=== PATIENT | female | born 1940 | race Two or more races ===

== ENCOUNTER 2017-01-12 17:10 | Inpatient (IN) | payer MEDICARE, OTHER ==
[~2017-01-12] VITALS: Ht 157.5 cm; Wt 110.2 kg
[2017-01-12] MEDS ORDERED: Z GUARD REMEDY PASTE 57 GM TUBE TOP PRN (17:30)
[2017-01-12] MEDS ORDERED: MAGN30OR PO (17:56)
[2017-01-12] MEDS ORDERED: PANT40TA4 PO (17:56)
[2017-01-12] MEDS ORDERED: INSU100V28 SQ ×2 (17:56)
[2017-01-12] MEDS ORDERED: ACET-2154 PO (17:56)
[2017-01-12] MEDS ORDERED: HYDR100T27 PO (17:56)
[2017-01-12] MEDS ORDERED: GLIP10TA11 PO (17:56)
[2017-01-12] MEDS ORDERED: FURO40TA5 PO (17:56)
[2017-01-12] MEDS ORDERED: CLOP75TA33 PO (17:56)
[2017-01-12] MEDS ORDERED: LATA2.5D2 EACHEYE (17:56)
[2017-01-12] MEDS ORDERED: CARV25TA2 PO (17:56)
[2017-01-12] MEDS ORDERED: CLON0.1T PO ×2 (17:56)
[2017-01-12] MEDS ORDERED: SIMV40TA5 PO (17:56)
[2017-01-12] MEDS ORDERED: CLON0.5T4 PO (17:56)
[2017-01-12] MEDS ORDERED: IPRA0.2S48 NEB (17:56)
[2017-01-12] MEDS ORDERED: ERGO500014 PO (17:56)
[2017-01-12] MEDS ORDERED: HYDR-3980 PO (17:56)
[2017-01-12] MEDS ORDERED: GABA-532 PO (17:56)
[2017-01-12] MEDS ORDERED: GUAI600T53 PO (17:56)
[2017-01-12] MEDS ORDERED: BLOO-668 IN (17:56)
[2017-01-12] MEDS ORDERED: ISOS30TA6 PO (17:56)
[2017-01-12] MEDS ORDERED: BISA-79 PO (17:56)
[2017-01-12] MEDS ORDERED: NALO25TA PO (17:56)
[2017-01-12] MEDS ORDERED: Medication Not On Formulary EA (Magnesium Hydroxide/Al Hydrox (Mag-Al Liquid) 30 ML) PO PRN (19:00)
[2017-01-12] MEDS ORDERED: GUAIFENESIN LA 600 MG TABLET.SA PO PRN (19:00)
[2017-01-12] MEDS ORDERED: CLONAZEPAM 0.5 MG TABLET PO PRN (19:00)
--- NOTE | 2017-01-12 19:30 | NUR ---
Received patient sitting up in bed in stable condition. at bedside. Patient is alert and oriented. Verbally responsive and able to make needs known. Denies any pain and discomfort at this time. No acute distress. On cont. O2 @ 2L via NC. Patient with IV on left arm. Patent and intact. No s/s of bleeding. No infiltration noted. Both lower extremities noted with pitting edema. Patient with bedside commode in room. Reminded patient to call for help when assitance is needed. All needs attended to promptly. Call light within reach. Will continue to monitor.
[2017-01-12] MEDS ORDERED: DEXTROSE 50% 50 ML DISP.SYRIN IV PRN (19:45)
[2017-01-12] MEDS ORDERED: MAGN400O6 PO (19:48)
[2017-01-12] MEDS ORDERED: MAGNESIUM HYDROXIDE 30 ML LIQUID UDC PO PRN ×2 (20:00)
[2017-01-12 20:48] VITALS: BP 172/78
--- NOTE | 2017-01-12 20:48 | NUR ---
Patient noted with increase BP of 172/78, BP medication give as ordered. Will re-check BP.
[2017-01-12] MEDS ORDERED: BLOOD SUGAR DIAGNOSTIC 1 EACH STRIP VI SCH (21:00)
[2017-01-12] MEDS: GABAPENTIN 100 MG CAPSULE PO SCH (21:24)
[2017-01-12] MEDS: CARVEDILOL 25 MG TABLET PO SCH (21:26)
[2017-01-12] MEDS: LATANOPROST OPHT DROP 2.5 ML BOTTLE EACHEYE SCH (21:26)
[2017-01-12] MEDS: BLOOD SUGAR DIAGNOSTIC 1 EACH STRIP VI SCH (21:29)
[2017-01-12] MEDS: INSULIN REGULAR, HUMAN 300 UNIT/3 ML VIAL SQ PRN (21:32)
[2017-01-12] MEDS: ACETAMINOPHEN 325 MG TABLET PO PRN (21:34)
[2017-01-12] MEDS: hydrALAZINE HCL 50 MG TABLET PO SCH (21:39)
--- NOTE | 2017-01-12 21:48 | NUR ---
Re-checked BP. 144/77. Patient resting comfortably. No acute distress. All needs attended to promptly. Call light within reach. Will continue to monitor.
[2017-01-12] MEDS: IPRATROPIUM BROMIDE 0.5 MG/2.5 ML NEBU NEB SCH ×2 (22:29→22:30)
[2017-01-13] MEDS: HYDROCODONE/APAP 7.5-325MG TABLET PO PRN (00:39)
[2017-01-13] MEDS: IPRATROPIUM BROMIDE 0.5 MG/2.5 ML NEBU NEB SCH ×6 (03:12→23:21)
[2017-01-13] MEDS: BLOOD SUGAR DIAGNOSTIC 1 EACH STRIP VI SCH ×4 (06:38→20:49)
[2017-01-13] MEDS: CLONIDINE HCL 0.1 MG TABLET PO PRN (06:42)
[2017-01-13] MEDS: glipiZIDE 10 MG TABLET PO SCH ×2 (06:44→16:57)
--- NOTE | 2017-01-13 06:55 | NUR ---
Patient is awake. Slept intermittently throughout the night. Verbalized that she was nervous, offered her anti anxiety medication, but patient refused. C/o pain on the neck last night, [place] given as ordered. Tolerated well. BS this AM was 370. Will endorse to day shift nurse. Glipizide 10mg given as ordered. BP noted to be 185/87, pulse 70. Clonidine given as ordered. Will endorse to day shift nurse to re-check BP in 1 hour. Patient is in no acute distress at this time. On O2 @ 2L via NC. All needs attended to promptly. Call light within reach. Will continue to monitor.
--- NOTE | 2017-01-13 08:00 | NUR ---
Pt.in bed,A/A/Ox4 no s/s of acute distress,denies pain @ time,eating breakfast,watching TV.
[2017-01-13 08:02] LABS: BASOPHILS % (AUTO) 0.4 % (0.0-2.0); EOSINOPHILS # (AUTO) 0.1 K/uL (0.0-0.7); EOSINOPHILS % (AUTO) 1.8 % (0.0-7.0); HEMATOCRIT 30.2 % (37-47); HEMOGLOBIN 9.9 G/DL (12.0-16.0); LYMPHOCYTES # (AUTO) 1.2 K/UL (0.8-4.8); LYMPHOCYTES % (AUTO) 20.7 % (20.5-51.5); MEAN CORPUSCULAR HEMOGLOBIN 26.3 UUG (27.0-31.0); MEAN CORPUSCULAR HGB CONC 33 g/dL (32.0-37.0); MEAN CORPUSCULAR VOLUME 80.3 FL (81.0-99.0); MONOCYTES # (AUTO) 0.5 K/UL (0.1-1.30); MONOCYTES % (AUTO) 8.1 % (0.0-11.0); NEUTROPHILS # (AUTO) 4.1 K/UL (1.8-8.9); PLATELET COUNT (AUTO) 148 K/UL (150-450); RED BLOOD CELL COUNT(AUTO) 3.76 MIL/UL (4.2-5.4); WHITE BLOOD COUNT (AUTO) 5.9 K/UL (4.0-11.2)
[2017-01-13 08:08] VITALS: BP 185/91
[2017-01-13 08:31] LABS: CARBON DIOXIDE 35 mmol/L (21-32); CHLORIDE 100 mmol/L (98-107); CREATININE 1.2 mg/dL (0.6-1.3); MAGNESIUM 1.8 mg/dL (1.8-2.4); PHOSPHOROUS 3.4 mg/dL (2.5-4.9); POTASSIUM 3.9 mmol/L (3.5-5.1); UREA NITROGEN, BLOOD 34 mg/dL (7-18)
[2017-01-13] MEDS: FUROSEMIDE 40 MG TABLET PO SCH (08:37)
[2017-01-13] MEDS: INSULIN REGULAR, HUMAN 300 UNIT/3 ML VIAL SQ PRN ×4 (08:37→20:54)
[2017-01-13 08:38] LABS: GLUCOSE 387 mg/dL (74-106)
[2017-01-13] MEDS: hydrALAZINE HCL 50 MG TABLET PO SCH ×2 (08:38→20:49)
[2017-01-13] MEDS: PANTOPRAZOLE SODIUM 40 MG TABLET.DR PO SCH (08:38)
[2017-01-13] MEDS: CLOPIDOGREL 75 MG TABLET PO SCH (08:38)
[2017-01-13] MEDS: CARVEDILOL 25 MG TABLET PO SCH ×2 (08:39→20:48)
[2017-01-13] MEDS: MOVANTIK 25 MG PO SCH ×2 (08:40→13:53)
[2017-01-13] MEDS: ISOSORBIDE MONONITRATE 30 MG TAB.SR.24H PO SCH ×2 (08:42→16:57)
[2017-01-13] MEDS ORDERED: Medication Not On Formulary EA (Naloxegol Oxalate (Movantik) 25 MG) PO SCH (09:00)
[2017-01-13 09:04] LABS: CHOLESTEROL 141 mg/dL (<200); HDL CHOLESTEROL 47 mg/dL (40-60); TRIGLYCERIDES 189 MG/DL (30-150)
[2017-01-13 12:00] VITALS: BP 129/61
[2017-01-13] MEDS ORDERED: INSULIN DETEMIR 300 UNIT/3 ML CARTRIDGE SQ SCH ×2 (13:15→21:00)
[2017-01-13] MEDS ORDERED: INSULIN DETEMIR 300 UNIT/3 ML CARTRIDGE SQ ONE (13:30)
[2017-01-13] MEDS: BISACODYL 5 MG TABLET.DR PO PRN (13:41)
--- NOTE | 2017-01-13 15:31 | NUR ---
PT. AT BEDSIDE,WAS UPDATED WITH PT.CONDITION AND PLAN OF CARE.
--- NOTE | 2017-01-13 17:22 | NUR ---
PT.WAS SEEN DR.NIAMER SHUKLA.
[2017-01-13 17:40] VITALS: BP 159/78
[2017-01-13 20:00] VITALS: BP 162/79
[2017-01-13] MEDS: LATANOPROST OPHT DROP 2.5 ML BOTTLE EACHEYE SCH (20:47)
[2017-01-13] MEDS: GABAPENTIN 100 MG CAPSULE PO SCH (20:47)
[2017-01-13] MEDS: SIMVASTATIN 40 MG TABLET PO SCH (20:49)
--- NOTE | 2017-01-13 23:04 | NUR ---
PATIENT SITTING ON BED, SHE USES OXYGEN VIA NC @ 2LPM ON AND OFF. NO C/O OF PAIN OR ANY DICOMFORT AT THIS TIME. AT [facility] BED SIDE. WILL CONTINUE TO MONITOR.
[2017-01-13] MEDS: ACETAMINOPHEN 325 MG TABLET PO PRN (23:54)
[2017-01-14] MEDS: IPRATROPIUM BROMIDE 0.5 MG/2.5 ML NEBU NEB SCH ×6 (02:31→22:37)
[2017-01-14 06:00] VITALS: BP 156/81
[2017-01-14] MEDS: HYDROCODONE/APAP 7.5-325MG TABLET PO PRN ×2 (06:01→15:12)
--- NOTE | 2017-01-14 06:39 | NUR ---
PATIENT WAKE MOST NIGHT, PRN PAIN MEDICATION ADMINISTERED ON C/O NECK PAIN. USING O2 @ 2L VIA NC. BREATHING TX CONTINUING ORDERED. ENCOURAGED TO KEEP FEET ELEVATED. SAFETY MEASURES OBSERVED. CALL LIGHT IN REACH
[2017-01-14] MEDS: BLOOD SUGAR DIAGNOSTIC 1 EACH STRIP VI SCH ×4 (07:31→21:37)
[2017-01-14 08:10] VITALS: BP 172/82
[2017-01-14] MEDS: ISOSORBIDE MONONITRATE 30 MG TAB.SR.24H PO SCH ×2 (09:00→16:35)
[2017-01-14] MEDS: glipiZIDE 10 MG TABLET PO SCH ×2 (09:00→16:35)
[2017-01-14] MEDS: FUROSEMIDE 40 MG TABLET PO SCH (09:01)
[2017-01-14] MEDS: CARVEDILOL 25 MG TABLET PO SCH ×2 (09:01→21:26)
[2017-01-14] MEDS: hydrALAZINE HCL 50 MG TABLET PO SCH ×2 (09:01→16:36)
[2017-01-14] MEDS: CLOPIDOGREL 75 MG TABLET PO SCH (09:02)
[2017-01-14] MEDS: PANTOPRAZOLE SODIUM 40 MG TABLET.DR PO SCH (09:02)
[2017-01-14] MEDS: ACETAMINOPHEN 325 MG TABLET PO PRN (13:13)
[2017-01-14] MEDS: INSULIN REGULAR, HUMAN 300 UNIT/3 ML VIAL SQ PRN ×3 (13:37→21:40)
[2017-01-14] MEDS: CLONIDINE HCL 0.1 MG TABLET PO PRN (14:39)
[2017-01-14] MEDS: AMLODIPINE 5 MG TABLET PO SCH (14:40)
--- NOTE | 2017-01-14 14:50 | NUR ---
PT GIVEN 10 UNITS FOR 398 BEFORE LUNCH. REASSESSED AFTER 1 HOUR. PT BLOOD GLUCOSE. 429. CALLED MD. MD ORDERED 10UNITS STAT. WILL CONTINUE TO REASSESS FOR COMPLICATIONS.
[2017-01-14] MEDS ORDERED: INSULIN REGULAR, HUMAN 300 UNIT/3 ML VIAL SQ SCH (15:00)
--- NOTE | 2017-01-14 15:12 | NUR ---
PT COMPLAINS OF LEG PAIN. PT ASSESSED. PEDAL PULSES ARE PALPABLE. PT GIVEN NORCO 7-325.PT GIVEN BREATHING THREATMENT. PT PUT ON HUMIDIFIER COMPLAINTS OF DRY NOSE. WILL CONTINUE TO REASESS FOR COMPLICATIONS.
--- NOTE | 2017-01-14 18:58 | NUR ---
pt had uncontrollable blood sugar levels during shift. called md for recommendations. md ordered 10 units humilin after blood sugar recheck 429. pt also had bp on the 170. pt given clonidine. pt averages on 150 for bp and 300s on blood sugar. pt seen by associate field service engineer and recommended new bp meds. pt also seen by dr leslie and also adjusted levemir. pt stopped complaining of neuropathic leg pain after blood sugar drops. will continue to endorse new orders to night patrol inspector nurse.
--- NOTE | 2017-01-14 19:30 | NUR ---
RECEIVED PATIENT AWAKE, ALERT, AND ORIENTED X4. COMFORTABLE AT PRESENT.NO C/O SOB ON O2 AT 2 LPM/NASAL CANNULA. HUMIDIFIER APPLIED FOR PATIENT C/O HAVING DRY NOSE.SATS ADEQUATE OVER 92%.LUNGS CLEAR. NON PRODUCTIVE COUGH.OOB TO COMMODE WITH STANDBY ASSIST AND VOIDED CLEAR YELLOW URINE IN ADEQUATE AMOUNTS. PM CARE COMPLETED. CALL LIGHT WITHIN REACH.
[2017-01-14] MEDS ORDERED: INSULIN DETEMIR 300 UNIT/3 ML CARTRIDGE SQ SCH (21:00)
[2017-01-14] MEDS: LATANOPROST OPHT DROP 2.5 ML BOTTLE EACHEYE SCH (21:25)
[2017-01-14] MEDS: GABAPENTIN 100 MG CAPSULE PO SCH (21:26)
[2017-01-14] MEDS: SIMVASTATIN 40 MG TABLET PO SCH (21:26)
[2017-01-14] MEDS: INSULIN DETEMIR 300 UNIT/3 ML CARTRIDGE SQ SCH (21:41)
[2017-01-14 23:14] VITALS: BP 152/76
[2017-01-15] MEDS: IPRATROPIUM BROMIDE 0.5 MG/2.5 ML NEBU NEB SCH ×6 (03:14→22:55)
[2017-01-15] MEDS: ACETAMINOPHEN 325 MG TABLET PO PRN ×2 (03:14→16:36)
[2017-01-15] MEDS: CLONIDINE HCL 0.1 MG TABLET PO PRN (04:29)
--- NOTE | 2017-01-15 06:00 | NUR ---
SLEPT ONLY FAIR LAST NIGHT.REFUSES NORCO FOR PAIN D/T CONCERNS OVER CONSTIPATION. SO DID C/O LEFT NECK PAIN AND WITH GENERALIZED DISCOMFORT. ICE PACK WITH LITTLE RELIEF.BLOOD SUGAR IMPROVED THIS MORNING WITH INCREASE IN LEVIMIR TO 25 UNITS.CONTINUE TO MONITOR.CALL LIGHT WITHIN REACH AAT
[2017-01-15 06:30] VITALS: BP 145/67
[2017-01-15] MEDS: BLOOD SUGAR DIAGNOSTIC 1 EACH STRIP VI SCH ×5 (06:52→22:24)
[2017-01-15] MEDS: glipiZIDE 10 MG TABLET PO SCH ×2 (07:49→16:40)
[2017-01-15] MEDS: INSULIN REGULAR, HUMAN 300 UNIT/3 ML VIAL SQ PRN ×5 (07:53→22:27)
--- NOTE | 2017-01-15 08:00 | NUR ---
RECEIVED PATIENT AWAKE, ALERT AND ORIENTED X4. ON O2 AT 2 LMP WITH O2 SAT AT 95%. NO COMPLAINTS OF SHORTNESS OF BREATH NOT IN ANY FORM OF DISTRESS. NO COMPLAINTS OF PAIN AT THE MOMENT. BP 145/83, REFUSED HYDRALAZINE 100 MG AND SAID "MY BP NOT HIGH, IM ALREADY TAKING SOMETHING FOR BLOOD PRESSURE."
[2017-01-15] MEDS: PANTOPRAZOLE SODIUM 40 MG TABLET.DR PO SCH (08:15)
[2017-01-15] MEDS: FUROSEMIDE 40 MG TABLET PO SCH (08:19)
[2017-01-15] MEDS: AMLODIPINE 5 MG TABLET PO SCH (08:19)
[2017-01-15] MEDS: CLOPIDOGREL 75 MG TABLET PO SCH (08:19)
[2017-01-15] MEDS: hydrALAZINE HCL 50 MG TABLET PO SCH ×5 (08:21→16:40)
[2017-01-15] MEDS: CARVEDILOL 25 MG TABLET PO SCH ×2 (08:22→21:08)
[2017-01-15] MEDS: ISOSORBIDE MONONITRATE 30 MG TAB.SR.24H PO SCH ×2 (08:22→16:40)
[2017-01-15] MEDS: MOVANTIK 25 MG PO SCH (08:23)
--- NOTE | 2017-01-15 10:30 | NUR ---
PATIENT COMPLAINED OF GENERALIZED PAIN RATED 9/10. JUST FINISHED WITH OT. PRN NORCO GIVEN.
[2017-01-15 10:32] VITALS: BP 145/83
[2017-01-15] MEDS: HYDROCODONE/APAP 7.5-325MG TABLET PO PRN ×2 (10:41→19:10)
--- NOTE | 2017-01-15 13:42 | NUR ---
PATIENT RESTING IN BED COMFORTABLY NO COMPLAINTS OF PAIN AT THE MOMENT. BP AT 133/56 [place] AT 71%. HYDRALAZINE 100 MG TID REFUSED BY PATIENT, CLAIMS THAT SHE IS SCARED THAT BP MIGHT GO DOWN AND BECOME TOO LOW. EXPLAINED MEDICATION INDICATIONS AND NEED, BUT STILL REFUSES
--- NOTE | 2017-01-15 16:45 | NUR ---
PATIENT REMOVED O2 BECAUSE OF PAIN OVER POSTERIOR EAR. O2 SAT AT 95% IN ROOM AIR. PETROLEUM APPLIED OVER POSTERIOR EAR. PATIENT WANTED PAIN MEDICATIONS, PAIN OVER POSTERIOR EAR RATED 5/10, TYLENOL PRN GIVEN.
--- NOTE | 2017-01-15 19:00 | NUR ---
COMPLAINED OF LOWER BACK PAIN RATED 8/10. NORCO PRN GIVEN
--- NOTE | 2017-01-15 19:30 | NUR ---
RECEIVED PATIENT AWAKE, ALERT AND ORIENTED X4 WITH LESS C/O GENERALIZED PAIN AFTER 190 NORCO WAS GIVEN.ABLE TO AMBULATE WITH WALKER A LITTLE EASIER NOW. SITTING AT BEDSIDE DANGLING IN NAD. OFF OXYGEN AT PRESENT WITH ADEQUATE SATS. NO C/O RESPIRATORY DISTRESS NOTED.INSTRUCTED TO CALL RN FOR ALL NEEDS/ REQUESTS. VERBALIZES GOOD UNDERSTANDING. CALL LIGHT WITHIN REACH AAT
[2017-01-15 20:00] VITALS: BP 146/70
[2017-01-15] MEDS: LATANOPROST OPHT DROP 2.5 ML BOTTLE EACHEYE SCH (21:07)
[2017-01-15] MEDS: GABAPENTIN 100 MG CAPSULE PO SCH (21:07)
[2017-01-15] MEDS: SIMVASTATIN 40 MG TABLET PO SCH (21:07)
[2017-01-15] MEDS: INSULIN DETEMIR 300 UNIT/3 ML CARTRIDGE SQ SCH (21:19)
--- NOTE | 2017-01-15 21:35 | NUR ---
DR PERALTA NOTIFIED OF ACCUCHECK OF 434 WITH REPEAT TESTING OF 419 TONIGHT. NOTIFIED OF LEVIMIR 25 UNITS SUBQ AND 10 UNITS REGULAR INSULIN THAT WAS GIVEN. PATIENT STATED SHE HAS NOT CHEATED WITH HER DIET TODAY, DID NOT EAT THE HOSPITAL DINNER AND THAT SHE ONLY ATE A [employer] FISH SANDWICH HER BROUGHT IN.ORDERS RECEIVED. WILL RECHECK ACCUCHECK IN ONE HOUR FROM LAST ACCUCHECK AND WILL TREAT WITH PRESENT SLIDING SCALE
[2017-01-15] MEDS: BISACODYL 5 MG TABLET.DR PO PRN (22:09)
--- NOTE | 2017-01-15 22:15 | NUR ---
REPEAT ACCUCHECK DONE ORDERED. BLOOD SUGAR IS 377. MEDICATED WITH SLIDING SCALE- 10 UNITS REGULAR INSULIN SUBQ. DISCUSSED SIGNS/SYMPTOMS OF HYPOGLYCEMIA/ HYPERGLYCEMIA. PATIENT HAS GOOD UNDERSTANDING OF THESE SYMPTOMS. IS OOB TO BSC TO ATTEMPT BOWEL MOVEMENT WITHOUT SUCCESS. "FEELS BLOATED". DULCOLAX 10 MG PO GIVEN. ON FLUID RESTRICTION OF 1.5 LITERS/DAY. COMPLIANT WITH THIS AMOUNT TONIGHT. LEGS ARE STILL SWOLLEN: RIGHT MORE THAN LEFT. ENCOURAGED ELEVATION OF LEGS ON PILLOWS. PM CARE COMPLETED.
[2017-01-16] MEDS: IPRATROPIUM BROMIDE 0.5 MG/2.5 ML NEBU NEB SCH ×6 (03:30→23:44)
[2017-01-16] MEDS: ACETAMINOPHEN 325 MG TABLET PO PRN ×2 (04:49→10:58)
[2017-01-16] MEDS: BLOOD SUGAR DIAGNOSTIC 1 EACH STRIP VI SCH ×3 (06:45→21:00)
--- NOTE | 2017-01-16 06:45 | NUR ---
MORNING ACCUCHECK IS 238. HAD LARGE SOFT BROWN BM AFTER DULCOLAX PO GIVEN LAST NIGHT. FLUID RESTRICTION OF 1.5 L/DAY MAINTAINED OVER NIGHT. NO RESPIRATORY DISTRESS ON ROOM AIR OVER NIGHT. SLEPT ONLY FAIR TONIGHT., D/T TRYING TO HAVE BM. NO C/O DISCOMFORT OR OTHER PAINS THIS MORNING.NONPRODUCTIVE COUGH. CALL LIGHT WITHIN REACH
[2017-01-16] MEDS: INSULIN REGULAR, HUMAN 300 UNIT/3 ML VIAL SQ PRN ×3 (07:50→22:08)
[2017-01-16] MEDS: glipiZIDE 10 MG TABLET PO SCH ×2 (07:56→16:36)
[2017-01-16 08:02] VITALS: BP 154/82
[2017-01-16] MEDS: hydrALAZINE HCL 50 MG TABLET PO SCH ×4 (09:00→16:59)
[2017-01-16] MEDS: FUROSEMIDE 40 MG TABLET PO SCH (09:00)
[2017-01-16] MEDS: CLOPIDOGREL 75 MG TABLET PO SCH (09:00)
[2017-01-16] MEDS: MOVANTIK 25 MG PO SCH (09:00)
[2017-01-16] MEDS ORDERED: SITAGLIPTIN PHOSPHATE 50 MG TABLET PO SCH (09:00)
[2017-01-16] MEDS: PANTOPRAZOLE SODIUM 40 MG TABLET.DR PO SCH (09:01)
[2017-01-16] MEDS: CARVEDILOL 25 MG TABLET PO SCH ×2 (09:01→20:45)
[2017-01-16] MEDS: AMLODIPINE 5 MG TABLET PO SCH (09:01)
[2017-01-16] MEDS: LINAGLIPTIN 5 MG TABLET PO SCH (09:02)
[2017-01-16] MEDS: ISOSORBIDE MONONITRATE 30 MG TAB.SR.24H PO SCH ×2 (09:02→16:36)
--- NOTE | 2017-01-16 09:06 | NUR ---
Patient refused to take Lasix, despite education about CHF and its benefits. According to patient she "doesn't want to pee all day." Patient also refused Hydralazine despite education on HTN, she said it was dangerous taking too much medicine, "BP may go to low." Refused also her Movantik she said, she had too much BM yesterday.
--- NOTE | 2017-01-16 11:00 | NUR ---
PATIENT COMPLAINED OF ABDOMINAL PAIN, NO VOMITING/ NAUSEA. NO DIARRHEA NOTED, LAST BOWEL MOVEMENT WAS THIS MORNING. TYLENOL PRN GIVEN. INFORMED DR. GARCIA OF PATIENT'S ABDOMINAL PAIN RATED 6/10. DR. PILLAI ORDERED ABDOMINAL KUB XRAY.
[2017-01-16] MEDS: HYDROCODONE/APAP 7.5-325MG TABLET PO PRN (13:30)
[2017-01-16] MEDS: LATANOPROST OPHT DROP 2.5 ML BOTTLE EACHEYE SCH (16:59)
[2017-01-16] MEDS: INSULIN DETEMIR 300 UNIT/3 ML CARTRIDGE SQ SCH (17:03)
[2017-01-16] MEDS: CLONIDINE HCL 0.1 MG TABLET PO PRN (18:31)
[2017-01-16] MEDS: GABAPENTIN 100 MG CAPSULE PO SCH (20:45)
[2017-01-16] MEDS: SIMVASTATIN 40 MG TABLET PO SCH (20:45)
[2017-01-16 21:08] VITALS: BP 158/77
[2017-01-16] MEDS ORDERED: GABAPENTIN 100 MG CAPSULE PO ONE (22:30)
[2017-01-17] MEDS: IPRATROPIUM BROMIDE 0.5 MG/2.5 ML NEBU NEB SCH ×6 (02:58→23:20)
--- NOTE | 2017-01-17 06:00 | NUR ---
pt bs 427 mg/dl @ 2146, made aware, called back no orders but to continue to give sliding scale, pt requested rechecked @ 2340 and resulted 377mg/dl, this morning is 287mg/dl, Dr harrington made aware pt takes 50units for am/ 25units at night for levemir,Dr. Balbuena aware and will adjust today. tylenol given, refused x1 dose of neurontin.will continue to monitor, HHN per RT, voiding well.all needs attended,call light at reached.
[2017-01-17] MEDS: glipiZIDE 10 MG TABLET PO SCH ×2 (06:53→16:45)
[2017-01-17] MEDS: BLOOD SUGAR DIAGNOSTIC 1 EACH STRIP VI SCH ×4 (06:58→21:41)
[2017-01-17] MEDS: ACETAMINOPHEN 325 MG TABLET PO PRN (07:02)
[2017-01-17] MEDS: AMLODIPINE 5 MG TABLET PO SCH ×2 (08:04→18:01)
[2017-01-17] MEDS: CARVEDILOL 25 MG TABLET PO SCH ×2 (08:04→21:37)
[2017-01-17] MEDS: FUROSEMIDE 40 MG TABLET PO SCH (08:04)
[2017-01-17] MEDS: CLOPIDOGREL 75 MG TABLET PO SCH (08:04)
[2017-01-17] MEDS: hydrALAZINE HCL 50 MG TABLET PO SCH ×3 (08:04→16:51)
[2017-01-17] MEDS: PANTOPRAZOLE SODIUM 40 MG TABLET.DR PO SCH (08:04)
[2017-01-17] MEDS: MOVANTIK 25 MG PO SCH (08:05)
[2017-01-17] MEDS: LINAGLIPTIN 5 MG TABLET PO SCH (08:05)
[2017-01-17] MEDS: ISOSORBIDE MONONITRATE 30 MG TAB.SR.24H PO SCH ×2 (08:05→16:51)
[2017-01-17] MEDS: LATANOPROST OPHT DROP 2.5 ML BOTTLE EACHEYE SCH ×3 (08:06→16:46)
[2017-01-17] MEDS: INSULIN DETEMIR 300 UNIT/3 ML CARTRIDGE SQ SCH ×2 (08:12→16:56)
[2017-01-17] MEDS: INSULIN REGULAR, HUMAN 300 UNIT/3 ML VIAL SQ PRN ×4 (08:13→21:43)
[2017-01-17 08:23] VITALS: BP 192/89
[2017-01-17] MEDS: HYDROCODONE/APAP 7.5-325MG TABLET PO PRN (10:52)
[2017-01-17] MEDS: CLONIDINE HCL 0.1 MG TABLET PO PRN (18:02)
[2017-01-17 20:00] VITALS: BP 156/85
[2017-01-17] MEDS: GABAPENTIN 100 MG CAPSULE PO SCH (21:37)
[2017-01-17] MEDS: SIMVASTATIN 40 MG TABLET PO SCH (21:37)
[2017-01-18] MEDS: IPRATROPIUM BROMIDE 0.5 MG/2.5 ML NEBU NEB SCH ×6 (02:54→22:33)
--- NOTE | 2017-01-18 05:41 | NUR ---
Patient found sitting on the floor. Verbalized she woke up and sat at the side of the bed and slid while she was sitting. Assisted back to bed with 2 person assist. Patient stated she did not hit her head. VS are stable : 149/73, 85, 20, 97% RA. C/o pain on left knee at this time. Dr. Bhat office group notified. Spoke with Jermaine and said Dr. Cooper try out person. Awaiting call back at this time. Verbalized to patient to call for help when needed. Verbalizes understanding. All needs attended to promptly. Call light within reach. Will continue to monitor. Addendum: 01/18/17 at 0612 by KRISTINA FIELDS RN Received call back from Dr. Schofield with New orders for Xray of the left knee Stat and Ice pack PRN.
[2017-01-18] MEDS: HYDROCODONE/APAP 7.5-325MG TABLET PO PRN ×2 (06:46→13:37)
--- NOTE | 2017-01-18 07:38 | NUR ---
RN NOTES: 07:15 CALLED PATIENT'S DEE KEYALISA TO NOTIFY HIM ABOUT THE INCIDENT OF FALL. BUT NO ANSWER AND NO VOICE MASSAGING SETTING ARE AVAILABLE. THE DAY SHIFT NURSE MADE AWARE TO FOLLOW UP.
[2017-01-18 08:00] VITALS: BP 154/81
[2017-01-18] MEDS ORDERED: DEXTROSE 50% 50 ML DISP.SYRIN IV PRN ×2 (08:00)
[2017-01-18] MEDS: glipiZIDE 10 MG TABLET PO SCH ×2 (08:53→17:02)
[2017-01-18] MEDS: PANTOPRAZOLE SODIUM 40 MG TABLET.DR PO SCH (08:53)
[2017-01-18] MEDS: CLOPIDOGREL 75 MG TABLET PO SCH (08:53)
[2017-01-18] MEDS: FUROSEMIDE 40 MG TABLET PO SCH (08:54)
[2017-01-18] MEDS: ISOSORBIDE MONONITRATE 30 MG TAB.SR.24H PO SCH ×2 (08:54→17:02)
[2017-01-18] MEDS: CARVEDILOL 25 MG TABLET PO SCH ×2 (08:54→20:33)
[2017-01-18] MEDS: hydrALAZINE HCL 50 MG TABLET PO SCH ×3 (08:55→17:07)
[2017-01-18] MEDS: LINAGLIPTIN 5 MG TABLET PO SCH (08:55)
[2017-01-18] MEDS: MOVANTIK 25 MG PO SCH (08:56)
[2017-01-18] MEDS: INSULIN DETEMIR 300 UNIT/3 ML CARTRIDGE SQ SCH ×2 (08:59→21:02)
[2017-01-18] MEDS: INSULIN REGULAR, HUMAN 300 UNIT/3 ML VIAL SQ PRN ×3 (09:00→17:05)
[2017-01-18] MEDS: LATANOPROST OPHT DROP 2.5 ML BOTTLE EACHEYE SCH ×3 (09:00→17:00)
[2017-01-18] MEDS: AMLODIPINE 5 MG TABLET PO SCH ×2 (09:03→17:03)
--- NOTE | 2017-01-18 10:46 | NUR ---
pt complaints of pain radiating at back .pt given pain meds. md also adjusted the insulin sliding scale to moderate and readjusted blood pressure medications in the day. pt still in fluid restrictions but incompliant family still provides water when already instructed not to. will continue to reassess for complications.
[2017-01-18] MEDS ORDERED: INSULIN REGULAR, HUMAN 300 UNIT/3 ML VIAL SQ SCH (11:30)
[2017-01-18] MEDS ORDERED: BLOOD SUGAR DIAGNOSTIC 1 EACH STRIP VI SCH (11:30)
[2017-01-18] MEDS: BLOOD SUGAR DIAGNOSTIC 1 EACH STRIP VI SCH ×3 (11:50→21:00)
--- NOTE | 2017-01-18 11:51 | NUR ---
Park Interpreter SW met with patient at [facility] to assess pt needs and provide support. The patient is a 76 year old female (Omani speaking) who was admitted for CHF, HTN, SOB. The patient was sitting on her bed during the assessment with her at bedside. She was calm and cooperative during the interview. The patient's mood was depressed. She stated that she feels angry and frustrated with her current condition because she is in a lot of pain. She stated that she wanted to take a shower today but was unable to due to the severe pain that she is experiencing. The patient stated that her sleep has not been good and that her appetite is not very good as well. Per pt, she lives with her Jimmy who is also her caregiver [[address] [place] [address]; ]. The patient acknowledged her condition and the need for intervention. The patient stated that she has strong social support from her her and children. She stated that her emergency contact is her Saba Austin . Social history: The patient stated that she was born in [place] and moved to [place] at the age of 5. She lived in [place] for 27 years and then moved to the [facility]. The patient stated that she speaks Omani, French, and [place]. She has been to her for 52 years and they have 2 daughters and 1 son together. The patient stated that she has a good relationship with her children. 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 The patient denied any history of abuse or domestic violence. The patient denied any history of drug or alcohol abuse. The patient stated that she would like to return home with her upon discharge. SW engaged in active listening and provided supportive counseling during the interview to address patient's depressive symptoms related to her decline in functioning. SW will continue to address issues of loss related to recent hospitalization. SW will encourage compliance with rehab goals. SW will be available as needed.
--- NOTE | 2017-01-18 15:02 | NUR ---
Team Conference Meeting 01/18/17
--- NOTE | 2017-01-18 19:09 | NUR ---
RN NOTES: 05:25 PATIENT FOUND SITTING ON THE FLOOR . PATIENT VERBALIZES THAT SHE WOKE UP AND SAT AT THE SIDE OF THE BED AND SLID OFF TO THE GROUND. PATIENT REFUSED TO CALL FOR HELP . ASSISTED BACK TO BED WITH 2 PERSON ASSIST. THE BED ALARM WAS ON BUT IT DIDN'T GO OFF. PATIENT IS ALERT, ORIENTED TIMES 4. PATIENT STATES "I DIDN'T HIT MY HEAD". PATIENT COMPLAINS OF PAIN ON THE LEFT KNEE. VITAL SIGNS ARE STABLE. 149/73,85,20,97%. NO ACUTE DISTRESS NOTED. HEAD TO TOE ASSESSMENT IS DONE. NO INJURY NOTED. INCIDENT REPORT IS DONE AND CHARGE NURSE IS AWARE. EDUCATION TO THE PATIENT PROVIDED REGARDING SAFETY,FALL PRECAUTIONS AND USING THE CALL LIGHT WHENEVER NEEDS HELP . PATIENT VERBALIZES UNDERSTANDING. OFFICE GROUP NOTIFIED. 05:41 MD. IYER WHO IS ROTARY ENGRAVER IS CONTACTED AND NOTIFIED REGARDING THE INCIDENT. ORDERED X-RAY, AND CONTINUE TO MONITOR THE PATIENT.
--- NOTE | 2017-01-18 19:10 | NUR ---
pt provided meds as prescribed. blood sugar and blood pressure controlled through meds. blood sugar meds adjusted by md andrade. pt tolerated pain with help of meds. pt provided comfort measures and changed linens. pt is still non compliant with fluid restrictions and does not follow diet. will continue to endorse new orders to auto technician mechanic nurse.
[2017-01-18 20:16] VITALS: BP 142/62
[2017-01-18] MEDS: GABAPENTIN 100 MG CAPSULE PO SCH (20:32)
[2017-01-18] MEDS: SIMVASTATIN 40 MG TABLET PO SCH (20:33)
[2017-01-18] MEDS: INSULIN REGULAR, HUMAN 300 UNITS/3 ML VIAL SQ PRN (21:05)
[2017-01-18] MEDS: ACETAMINOPHEN 325 MG TABLET PO PRN (23:02)
--- NOTE | 2017-01-19 01:52 | NUR ---
PT ALERT,ORIENTED, AMBULATES WITH WALKER,BED ALARM NOT WORKING PROPERLY BUT PT REFUSED TO HAVE BED CHANGED, PT DOESN'T WANT THE ALARM ,SHE PROMISED TO CALL WHEN SHE GET UP TO COMMODE. VSS,AFEBRILE, ALL NEEDS ATTENDED, PT NON COMPLIANT WITH FLUID RESTRICTION COMES AND REFILLING THE PITCHER OF WATER. BUT PT INSIST THAT SHE DOESN'T DRINK IT ALL. CONTINUE TO HAVE PAIN LEFT KNEE DUE TO FALL, TYLENOL GIVEN STILL NOT EFFECTIVE, ICE PACK APPLIED.ALL NEEDS ATTENDED, CALL LIGHT AT REACHED.
[2017-01-19] MEDS: HYDROCODONE/APAP 7.5-325MG TABLET PO PRN ×2 (02:20→09:51)
[2017-01-19] MEDS: IPRATROPIUM BROMIDE 0.5 MG/2.5 ML NEBU NEB SCH ×6 (02:39→23:04)
--- NOTE | 2017-01-19 05:21 | NUR ---
PATIENT SLEPT MOST OF THE NIGHT, CONT ON PAIN MANAGEMENT, NO SOB NO CHEST PAIN, CALL LIGHT WITHIN REACH. KEPT CLEAN AND DRY. CONT TO MONITOR.
[2017-01-19] MEDS: BLOOD SUGAR DIAGNOSTIC 1 EACH STRIP VI SCH ×4 (06:49→21:09)
[2017-01-19] MEDS: glipiZIDE 10 MG TABLET PO SCH ×2 (07:04→16:49)
[2017-01-19 08:00] VITALS: BP 153/68
[2017-01-19] MEDS: LATANOPROST OPHT DROP 2.5 ML BOTTLE EACHEYE SCH ×3 (09:00→16:52)
[2017-01-19] MEDS: CLOPIDOGREL 75 MG TABLET PO SCH (09:50)
[2017-01-19] MEDS: FUROSEMIDE 40 MG TABLET PO SCH (09:51)
[2017-01-19] MEDS: LINAGLIPTIN 5 MG TABLET PO SCH (09:51)
[2017-01-19] MEDS: PANTOPRAZOLE SODIUM 40 MG TABLET.DR PO SCH (09:51)
[2017-01-19] MEDS: ISOSORBIDE MONONITRATE 30 MG TAB.SR.24H PO SCH ×2 (09:52→16:49)
[2017-01-19] MEDS: hydrALAZINE HCL 50 MG TABLET PO SCH ×3 (09:52→16:48)
[2017-01-19] MEDS: CARVEDILOL 25 MG TABLET PO SCH ×2 (09:52→20:12)
[2017-01-19] MEDS: INSULIN DETEMIR 300 UNIT/3 ML CARTRIDGE SQ SCH ×2 (09:53→21:10)
[2017-01-19] MEDS: INSULIN REGULAR, HUMAN 300 UNIT/3 ML VIAL SQ PRN ×3 (09:55→16:50)
[2017-01-19] MEDS: MOVANTIK 25 MG PO SCH (09:55)
[2017-01-19] MEDS: AMLODIPINE 5 MG TABLET PO SCH ×2 (10:03→17:00)
--- NOTE | 2017-01-19 12:20 | NUR ---
pt refused hydralazine 100mg. bp 121/28 hr 78. no signs of acute distress. explained risks and benefirts. pt continued to refuse. will assess for complications.
[2017-01-19] MEDS: ACETAMINOPHEN 325 MG TABLET PO PRN (15:19)
--- NOTE | 2017-01-19 18:14 | NUR ---
Attempted to administer Norvasc 5mg PO as ordered to patient. VS 121/59, P 71. Patient refused medication. Explained to patient the risk of refusing medication, including that her blood pressure would increase without taking medication. Patient continued to refuse medication despite educating about medication and taking medication to prevent further increase in blood pressure.
[2017-01-19 20:00] VITALS: BP 160/77
[2017-01-19] MEDS: GABAPENTIN 100 MG CAPSULE PO SCH (20:07)
[2017-01-19] MEDS: SIMVASTATIN 40 MG TABLET PO SCH (20:07)
[2017-01-19] MEDS: CLONIDINE HCL 0.1 MG TABLET PO PRN (20:33)
[2017-01-19] MEDS: BISACODYL 5 MG TABLET.DR PO PRN (21:06)
[2017-01-19] MEDS: INSULIN REGULAR, HUMAN 300 UNITS/3 ML VIAL SQ PRN (21:14)
[2017-01-20] MEDS: HYDROCODONE/APAP 7.5-325MG TABLET PO PRN ×2 (00:40→23:09)
[2017-01-20] MEDS: IPRATROPIUM BROMIDE 0.5 MG/2.5 ML NEBU NEB SCH ×6 (03:22→22:38)
[2017-01-20] MEDS: PANTOPRAZOLE SODIUM 40 MG TABLET.DR PO SCH (05:58)
[2017-01-20] MEDS: glipiZIDE 10 MG TABLET PO SCH ×2 (05:58→16:45)
[2017-01-20] MEDS: BLOOD SUGAR DIAGNOSTIC 1 EACH STRIP VI SCH ×4 (05:58→21:06)
--- NOTE | 2017-01-20 06:31 | NUR ---
GIVEN X1 CLONIDINE FOR BP 160/77, DULCOLAX FOR CONSTIPATION BUT WITH LITTLE EFFECT, REFUSED PRUNE JUICE. REQUESTED NORCO FOR 10/10 LEFT KNEE PAIN WITH GOOD RELIEF AND FALL ASLEEP.VOIDING WELL, STILL NON COMPLIANT WITH FLUID RESTRICTION ,DENIES ANY SOB, AMBULATED LAST NIGHT WITH ,WILL CONTINUE TO MONITOR,ALL NEEDS ATTENDED.
[2017-01-20] MEDS: INSULIN REGULAR, HUMAN 300 UNIT/3 ML VIAL SQ PRN ×3 (08:10→16:54)
--- NOTE | 2017-01-20 08:15 | NUR ---
RECEIVED PATIENT AWAKE, ALERT ORIENTED X4. NO S/S OF DISTRESS. CALL LIGHT WITHIN REACH. INSTRUCTED TO MAINTAIN FLUID INTAKE TO 1.5L PER DAY. ON O2 AT 2LMP
[2017-01-20 08:24] VITALS: BP 148/73
--- NOTE | 2017-01-20 08:30 | NUR ---
PATIENT REFUSED LASIX AND AND HYDRALAZINE MEDICATIONS. DISCUSSED RISKS AND BENEFITS BUT STILL REFUSED.
[2017-01-20] MEDS: ACETAMINOPHEN 325 MG TABLET PO PRN ×2 (08:48→14:44)
[2017-01-20] MEDS: LATANOPROST OPHT DROP 2.5 ML BOTTLE EACHEYE SCH ×3 (08:49→16:46)
[2017-01-20] MEDS: INSULIN DETEMIR 300 UNIT/3 ML CARTRIDGE SQ SCH ×2 (08:50→21:10)
[2017-01-20] MEDS: ISOSORBIDE MONONITRATE 30 MG TAB.SR.24H PO SCH ×2 (08:52→16:45)
[2017-01-20] MEDS: CARVEDILOL 25 MG TABLET PO SCH ×2 (08:52→21:02)
[2017-01-20] MEDS: AMLODIPINE 5 MG TABLET PO SCH ×2 (08:52→16:45)
[2017-01-20] MEDS: LINAGLIPTIN 5 MG TABLET PO SCH (08:53)
[2017-01-20] MEDS: CLOPIDOGREL 75 MG TABLET PO SCH (08:53)
[2017-01-20] MEDS: hydrALAZINE HCL 50 MG TABLET PO SCH ×3 (09:00→17:00)
[2017-01-20] MEDS: MOVANTIK 25 MG PO SCH (09:00)
[2017-01-20] MEDS: FUROSEMIDE 40 MG TABLET PO SCH (09:00)
--- NOTE | 2017-01-20 09:00 | NUR ---
COMPLAINED OF PAIN OVER BACK RATED 5/10. PRN TYLENOL GIVEN
--- NOTE | 2017-01-20 15:07 | NUR ---
PAIN OVER BACK RATED 6/10. PEN PAIN MEDICATION GIVEN.
--- NOTE | 2017-01-20 17:02 | NUR ---
PATIENT REFUSED HYDRALAZINE MEDICATION CLAIMS THAT SHE IS SCARED BP MIGHT DROP TOO LOW. DISCUSSED RISKS AND BENEFITS BUT STILL REFUSED.
[2017-01-20 20:03] VITALS: BP 149/66
[2017-01-20] MEDS: SIMVASTATIN 40 MG TABLET PO SCH (21:01)
[2017-01-20] MEDS: GABAPENTIN 100 MG CAPSULE PO SCH (21:01)
[2017-01-20] MEDS: INSULIN REGULAR, HUMAN 300 UNITS/3 ML VIAL SQ PRN (21:12)
[2017-01-21] MEDS: IPRATROPIUM BROMIDE 0.5 MG/2.5 ML NEBU NEB SCH ×6 (03:30→23:27)
[2017-01-21] MEDS: glipiZIDE 10 MG TABLET PO SCH ×2 (05:42→17:21)
[2017-01-21] MEDS: PANTOPRAZOLE SODIUM 40 MG TABLET.DR PO SCH (05:42)
[2017-01-21] MEDS: BLOOD SUGAR DIAGNOSTIC 1 EACH STRIP VI SCH ×4 (05:43→20:08)
--- NOTE | 2017-01-21 06:44 | NUR ---
pt woke up anxious in the middle of the night, requesting clonazepam, pt stated she had nightmares.with good effect, slept afterwards, had moderated bm, voiding well, continue to restrict fluids,call light at reached.vss,afebrile.
[2017-01-21 08:52] VITALS: BP 142/60
[2017-01-21] MEDS: ISOSORBIDE MONONITRATE 30 MG TAB.SR.24H PO SCH ×2 (09:00→17:22)
[2017-01-21] MEDS: LINAGLIPTIN 5 MG TABLET PO SCH (09:00)
[2017-01-21] MEDS: FUROSEMIDE 40 MG TABLET PO SCH (09:00)
[2017-01-21] MEDS: MOVANTIK 25 MG PO SCH (10:06)
[2017-01-21] MEDS: CLOPIDOGREL 75 MG TABLET PO SCH (10:07)
[2017-01-21] MEDS: CARVEDILOL 25 MG TABLET PO SCH ×2 (10:09→20:19)
[2017-01-21] MEDS: hydrALAZINE HCL 50 MG TABLET PO SCH ×3 (10:09→17:22)
[2017-01-21] MEDS: AMLODIPINE 5 MG TABLET PO SCH ×2 (10:14→17:21)
[2017-01-21] MEDS: LATANOPROST OPHT DROP 2.5 ML BOTTLE EACHEYE SCH ×3 (10:17→17:23)
[2017-01-21] MEDS: INSULIN DETEMIR 300 UNIT/3 ML CARTRIDGE SQ SCH ×2 (10:50→20:16)
[2017-01-21] MEDS: INSULIN REGULAR, HUMAN 300 UNIT/3 ML VIAL SQ PRN ×2 (10:58→17:32)
[2017-01-21] MEDS: HYDROCODONE/APAP 7.5-325MG TABLET PO PRN (12:26)
--- NOTE | 2017-01-21 14:48 | NUR ---
DAILY NOTE CLONAZEPAM D/C'D ORDERED PER REQUEST OF PT AND FAMILY. MD MOBLEY SAYS OK TO DC/
--- NOTE | 2017-01-21 17:37 | NUR ---
DAILY NOTE DINNER INSULIN COVERAGE GIVEN 6U FOR KS=[id number]
--- NOTE | 2017-01-21 20:00 | NUR ---
PT ALERT AND ORIENTED IN BED. NO DISTRESS NOTED. BS 209. COVERAGE GIVEN NEEDED. AT BEDSIDE. EDUCATED PT ON NOT GETTING UP WITHOUT CALLING FIRST. PT VERBALIZED UNDERSTANDING. SAFETY MAINTAINED. CALL LIGHT WITHIN REACH. WILL CONTINUE TO MONITOR.
[2017-01-21 20:16] VITALS: BP 152/70
[2017-01-21] MEDS: INSULIN REGULAR, HUMAN 300 UNITS/3 ML VIAL SQ PRN (20:18)
[2017-01-21] MEDS: SIMVASTATIN 40 MG TABLET PO SCH (20:19)
[2017-01-21] MEDS: GABAPENTIN 100 MG CAPSULE PO SCH (20:19)
[2017-01-22] MEDS: IPRATROPIUM BROMIDE 0.5 MG/2.5 ML NEBU NEB SCH ×6 (02:56→22:53)
[2017-01-22] MEDS: ACETAMINOPHEN 325 MG TABLET PO PRN ×2 (05:50→11:23)
--- NOTE | 2017-01-22 06:30 | NUR ---
PT RESTING IN BED. NO DISTRESS NOTED. O2 2L NC, O2 SAT WNL. BS 255. COMPLIANT WITH NURSING CARE. NO SIGNIFICANT CHANGES THROUGHOUT THE NIGHT. SAFETY MAINTAINED. CALL LIGHT WITHIN REACH.
[2017-01-22] MEDS: BLOOD SUGAR DIAGNOSTIC 1 EACH STRIP VI SCH ×4 (06:37→21:30)
[2017-01-22] MEDS: glipiZIDE 10 MG TABLET PO SCH ×2 (06:43→17:05)
[2017-01-22] MEDS: CLONIDINE HCL 0.1 MG TABLET PO PRN (06:43)
--- NOTE | 2017-01-22 07:00 | NUR ---
PT COMPLAINING OF HEADACHE, CHECKED BP 166/79 GAVE CATAPRES PRN ORDERED.
[2017-01-22 07:30] VITALS: BP 161/68
--- NOTE | 2017-01-22 08:07 | NUR ---
Received patient asleep in bed. non-labored breathing with o2 at 2LPM. Not in apparent distress. Call light within reach
[2017-01-22] MEDS: INSULIN REGULAR, HUMAN 300 UNIT/3 ML VIAL SQ PRN ×3 (08:56→17:04)
[2017-01-22] MEDS: hydrALAZINE HCL 50 MG TABLET PO SCH ×3 (09:00→17:07)
[2017-01-22] MEDS: FUROSEMIDE 40 MG TABLET PO SCH (09:00)
[2017-01-22] MEDS: ISOSORBIDE MONONITRATE 30 MG TAB.SR.24H PO SCH ×2 (09:06→17:05)
[2017-01-22] MEDS: LATANOPROST OPHT DROP 2.5 ML BOTTLE EACHEYE SCH ×3 (09:06→17:06)
[2017-01-22] MEDS: PANTOPRAZOLE SODIUM 40 MG TABLET.DR PO SCH (09:07)
[2017-01-22] MEDS: CLOPIDOGREL 75 MG TABLET PO SCH (09:07)
[2017-01-22] MEDS: MOVANTIK 25 MG PO SCH (09:07)
[2017-01-22] MEDS: AMLODIPINE 5 MG TABLET PO SCH ×2 (09:07→17:07)
[2017-01-22] MEDS: LINAGLIPTIN 5 MG TABLET PO SCH (09:08)
[2017-01-22] MEDS: CARVEDILOL 25 MG TABLET PO SCH ×2 (09:09→21:23)
[2017-01-22] MEDS: INSULIN DETEMIR 300 UNIT/3 ML CARTRIDGE SQ SCH ×2 (09:11→21:29)
--- NOTE | 2017-01-22 10:24 | NUR ---
Patient refused to take hydralazine, BP 148/73 MS- 66. According to patient she is concerned BP might drop too low. Discussed risks and benefits of medication. Lasix also refused by patient. Encouraged to take and discussed benefits for CHF, but refused and said "maybe later after therapy."
--- NOTE | 2017-01-22 11:26 | NUR ---
Complained of pain over shoulder rated as 6/10. PRN Tylenol given.
--- NOTE | 2017-01-22 14:05 | NUR ---
PATIENT REFUSED TO TAKE HYDRALAZINE. BP- 125/63, NE-77. PATIENT SAID SHE DOES NOT NEED IT BECAUSE HER BP IS OK. DISCUSSED RISKS AND BENEFITS BUT PATIENT STILL REFUSES
[2017-01-22] MEDS: HYDROCODONE/APAP 7.5-325MG TABLET PO PRN (14:56)
--- NOTE | 2017-01-22 15:10 | NUR ---
PATIENT COMPLAINED OF ABDOMINAL PAIN AND SHOULDER PAIN RATED 8/10. PRN NORCO GIVEN. DR. PERALTA INFORMED, ORDERED ABDOMINAL KUB XRAY.
[2017-01-22 19:03] VITALS: BP 148/70
[2017-01-22 19:52] VITALS: BP 150/71
[2017-01-22 21:07] VITALS: BP 150/71
[2017-01-22] MEDS: GABAPENTIN 100 MG CAPSULE PO SCH (21:22)
[2017-01-22] MEDS: SIMVASTATIN 40 MG TABLET PO SCH (21:23)
[2017-01-22] MEDS: INSULIN REGULAR, HUMAN 300 UNITS/3 ML VIAL SQ PRN (21:28)
[2017-01-23] MEDS: ACETAMINOPHEN 325 MG TABLET PO PRN ×2 (00:03→10:05)
[2017-01-23] MEDS: HYDROCODONE/APAP 7.5-325MG TABLET PO PRN ×2 (01:14→13:36)
[2017-01-23] MEDS: IPRATROPIUM BROMIDE 0.5 MG/2.5 ML NEBU NEB SCH ×3 (03:30→11:48)
[2017-01-23] MEDS: BLOOD SUGAR DIAGNOSTIC 1 EACH STRIP VI SCH ×2 (07:02→11:41)
[2017-01-23 07:30] VITALS: BP 144/57
[2017-01-23 07:38] LABS: ALANINE AMINOTRANSFERASE 19 U/L (14-59); ALKALINE PHOSPHATASE 61 U/L (50-136); AMYLASE 38 U/L (25-115); ASPARTATE AMINOTRANSFERASE 17 U/L (15-37); BILIRUBIN,TOTAL 0.3 mg/dL (0.2-1.0); CARBON DIOXIDE 27 mmol/L (21-32); CHLORIDE 106 mmol/L (98-107); CREATININE 1.1 mg/dL (0.6-1.3); GLUCOSE 234 mg/dL (74-106); PHOSPHOROUS 3.3 mg/dL (2.5-4.9); POTASSIUM 3.9 mmol/L (3.5-5.1); TOTAL PROTEIN, SERUM 6.3 g/dL (6.4-8.2); UREA NITROGEN, BLOOD 25 mg/dL (7-18)
[2017-01-23] MEDS: INSULIN REGULAR, HUMAN 300 UNIT/3 ML VIAL SQ PRN ×2 (07:54→11:52)
[2017-01-23] MEDS: glipiZIDE 10 MG TABLET PO SCH (07:57)
[2017-01-23] MEDS: LATANOPROST OPHT DROP 2.5 ML BOTTLE EACHEYE SCH ×2 (08:00→11:50)
[2017-01-23] MEDS: PANTOPRAZOLE SODIUM 40 MG TABLET.DR PO SCH (08:00)
[2017-01-23] MEDS: MOVANTIK 25 MG PO SCH (08:00)
[2017-01-23] MEDS: LINAGLIPTIN 5 MG TABLET PO SCH (08:00)
[2017-01-23] MEDS: CLOPIDOGREL 75 MG TABLET PO SCH (08:00)
[2017-01-23] MEDS: FUROSEMIDE 40 MG TABLET PO SCH (08:00)
[2017-01-23 08:02] LABS: BASOPHILS # (AUTO) 0.1 K/uL (0.0-8.0); BASOPHILS % (AUTO) 0.8 % (0.0-2.0); EOSINOPHILS # (AUTO) 0.1 K/uL (0.0-0.7); EOSINOPHILS % (AUTO) 2.1 % (0.0-7.0); HEMATOCRIT 28.2 % (37-47); HEMOGLOBIN 9.5 G/DL (12.0-16.0); LYMPHOCYTES # (AUTO) 1.9 K/UL (0.8-4.8); LYMPHOCYTES % (AUTO) 27.8 % (20.5-51.5); MEAN CORPUSCULAR HGB CONC 34 g/dL (32.0-37.0); MEAN CORPUSCULAR VOLUME 80.2 FL (81.0-99.0); MONOCYTES # (AUTO) 0.4 K/UL (0.1-1.30); MONOCYTES % (AUTO) 6.2 % (0.0-11.0); NEUTROPHILS # (AUTO) 4.5 K/UL (1.8-8.9); NEUTROPHILS % (AUTO) 63.1 % (38.5-71.5); PLATELET COUNT (AUTO) 148 K/UL (150-450); RED BLOOD CELL COUNT(AUTO) 3.51 MIL/UL (4.2-5.4)
[2017-01-23] MEDS: AMLODIPINE 5 MG TABLET PO SCH (08:05)
[2017-01-23] MEDS: ISOSORBIDE MONONITRATE 30 MG TAB.SR.24H PO SCH (08:05)
[2017-01-23] MEDS: CARVEDILOL 25 MG TABLET PO SCH (08:06)
[2017-01-23] MEDS: INSULIN DETEMIR 300 UNIT/3 ML CARTRIDGE SQ SCH (08:11)
[2017-01-23] MEDS: hydrALAZINE HCL 50 MG TABLET PO SCH ×3 (08:13→11:58)
--- NOTE | 2017-01-23 08:13 | NUR ---
MEDICATION READ AND OPENED WITH PATIENT. ALL MEDICATION HANDED TO PATIENT THEN PT STATED DID NOT WANT TO TAKE HYDRALIZINE AT THIS TIME. HYDRALIZINE TAKEN OUT AND THROWN IN SHARPS CONTAINER
[2017-01-23 11:58] VITALS: BP 150/75
--- NOTE | 2017-01-23 13:51 | NUR ---
Patient information received from RN on duty, Barbie Vazquez, due to staff relocation. Discharge orders received from Dr. Hdz. Discharge instructions and information given to patient by RN Barbie, patient and verbalized understanding. No questions at this time. Home medication received and verified from pharmacy. Patient left unit with via private vehicle. No events of distress noted, no other needs at time of discharge. Lorrie, case management social worker, Dr. Hdz and Dr. Rao made aware.
== END 2017-01-23 12:30 | disposition home health service (06) | DRG 292 ==
PROVIDERS: ADMIT Internal Medicine; ATTEND Physical Medicine & Rehabilitation Pain Medicine
DX: I13.0 Hypertensive heart and chronic kidney disease with heart failure and stage 1 through stage 4 chronic kidney disease, or unspecified chronic kidney disease (principal); Z68.41 Body mass index [BMI] 40.0-44.9, adult; N17.9 Acute kidney failure, unspecified; I50.32 Chronic diastolic (congestive) heart failure; J98.11 Atelectasis; E66.2 Morbid (severe) obesity with alveolar hypoventilation; E11.22 Type 2 diabetes mellitus with diabetic chronic kidney disease; E11.40 Type 2 diabetes mellitus with diabetic neuropathy, unspecified; H54.7 Unspecified visual loss; I25.10 Atherosclerotic heart disease of native coronary artery without angina pectoris; I70.0 Atherosclerosis of aorta; E66.01 Morbid (severe) obesity due to excess calories; K58.9 Irritable bowel syndrome, unspecified; M19.90 Unspecified osteoarthritis, unspecified site; M81.0 Age-related osteoporosis without current pathological fracture; N18.9 Chronic kidney disease, unspecified; Z96.659 Presence of unspecified artificial knee joint; Z96.649 Presence of unspecified artificial hip joint; Z83.3 Family history of diabetes mellitus; M79.7 Fibromyalgia; I27.2 Other secondary pulmonary hypertension; G62.9 Polyneuropathy, unspecified; D50.9 Iron deficiency anemia, unspecified; E03.9 Hypothyroidism, unspecified; E11.65 Type 2 diabetes mellitus with hyperglycemia; E78.5 Hyperlipidemia, unspecified; F41.0 Panic disorder [episodic paroxysmal anxiety]; G89.29 Other chronic pain; I48.0 Paroxysmal atrial fibrillation; J45.909 Unspecified asthma, uncomplicated; F32.9 Major depressive disorder, single episode, unspecified; G43.909 Migraine, unspecified, not intractable, without status migrainosus; H26.9 Unspecified cataract; K21.0 Gastro-esophageal reflux disease with esophagitis; Z87.440 Personal history of urinary (tract) infections; R42 Dizziness and giddiness; M25.562 Pain in left knee; M54.2 Cervicalgia; M54.5 Low back pain; R10.9 Unspecified abdominal pain
CPT/HCPCS: 36415; 73560; 74000; 83735; 84100; 85025; 92526; 92610; 94640; 94664; 97110; 97112; 97116; 97530; 97535; A4217; J1815; J3590